=== PATIENT | female | born 1980 ===

== ENCOUNTER 2024-12-19 01:31 | Emergency (ER) | payer SELFPAY ==
[2024-12-19 01:37] VITALS: BP 122/72; PULSE 99; TEMP 38.1; O2SAT 98; BMI 36.6
[2024-12-19 01:50] LABS: Influenza Virus A Antigen Negative; Influenza Virus B Antigen Negative; Internal Control Within Normal Limits; SARS-CoV-2 Ag NEGATIVE (NEGATIVE)
[2024-12-19 01:55] VITALS: O2SAT 97
--- NOTE | 2024-12-19 02:16 | ED.GENADUL1 ---
HPI HPI - General Adult General Chief complaint: Shortness of Breath/Dyspnea Stated complaint: COUGH Time Seen by Provider: 12/19/24 01:32 Source: patient Mode of arrival: ambulance Limitations: no limitations History of Present Illness HPI narrative: 43-year-old female to the emergency department with chief complaint of flulike illness. Started over the last 48 hours. She reports fever, chills, malaise, cough, congestion. She is a smoker. She reports she is otherwise at her baseline health. Denies . Related Data Home Medications ?Medication ?Instructions ?Recorded ?Confirmed buspirone 7.5 mg tablet 7.5 mg PO BID 12/19/24 12/19/24 hydroxyzine HCl 25 mg tablet 50 mg PO Q8H PRN anxiety 12/19/24 12/19/24 magnesium oxide 400 mg (241.3 mg 400 mg PO DAILY 12/19/24 12/19/24 magnesium) tablet melatonin 5 mg tablet 5 mg PO DAILY 12/19/24 12/19/24 Previous Rx's ?Medication ?Instructions ?Recorded azithromycin 250 mg tablet 250 mg PO DAILY 4 days #4 tabs 12/19/24 pelqxcbztccdzqq-lxhjygpvpivaxni-VN 5 ml PO Q4H PRN cold symptoms #118 12/19/24 2 mg-30 mg-10 mg/5 mL oral syrup mL (Bromfed DM) methylprednisolone 4 mg tablets in 4 mg PO DAILY #21 ea 12/19/24 a dose pack (Medrol (Pako)) Allergies Allergy/AdvReac Type Severity Reaction Status Date / Time opioids AdvReac Unknown Unknown Uncoded 12/19/24 01:44 Opioid HPI Opioid Management Most Recent Opioid Data: No Data to Display Review of Systems ROS Status of ROS 10 or more systems reviewed and unremarkable except as noted in history and below PFSH PFSH Social History Little interest or pleasure in doing things: not at all Feeling down, depressed, or hopeless: not at all Exam Narrative Exam Narrative: VITALS: I have reviewed the triage vital signs. GENERAL: Well developed, well appearing adult in no acute distress. NEURO: Alert and oriented. Moves all extremities. Face is symmetric and expressive. EYES: PERRL. No scleral icterus or conjunctival injection. No discharge. HENT: Normocephalic, atraumatic. Hearing is grossly intact. Nasal ingestion with clear discharge. Mucous membranes moist. NECK: No JVD. Patient moves neck without restriction. CARDIO: Rhythm regular. Normal rate. No murmur, rub, or gallop. Pulses equal bilaterally in the upper and lower extremity. No lower extremity edema. PULM: Lungs clear to auscultation in all maciel. No wheezes, rales, or rhonchi. No conversational dyspnea. No splinting, stridor, or accessory muscle use. Dry cough on exam. GI/: Abdomen is soft and non-tender. Normoactive bowel sounds. EXTREMITIES: Symmetric muscle bulk. No joint swelling. No clubbing, cyanosis, or deformity. SKIN: Warm and dry. Normal turgor. No rash or lesions appreciated. PSYCH: Tearful Constitutional Vital Signs, click to edit/add: Last Vital Signs Temp 100.6 F H 12/19/24 01:37 Pulse 99 H 12/19/24 01:37 Resp 20 12/19/24 01:37 BP 122/72 12/19/24 01:37 Pulse Ox 97 12/19/24 01:55 O2 Del Method Room Air 12/19/24 01:55 Course Vital Signs Vital signs: Vital Signs Temperature 100.6 F H 12/19/24 01:37 Pulse Rate 99 H 12/19/24 01:37 Respiratory Rate 20 12/19/24 01:37 Blood Pressure 122/72 12/19/24 01:37 Pulse Oximetry 98 12/19/24 01:37 Oxygen Delivery Method Room Air 12/19/24 01:37 Temperature 100.6 F H 12/19/24 01:37 Pulse Rate 99 H 12/19/24 01:37 Respiratory Rate 20 12/19/24 01:37 Blood Pressure 122/72 12/19/24 01:37 Pulse Oximetry 97 12/19/24 01:55 Oxygen Delivery Method Room Air 12/19/24 01:55 Medical Decision Making MDM Narrative Medical decision making narrative: 43-year-old female to the emergency department with chief complaint of flulike illness. Vital stable, the patient does have a fever. Flu and COVID testing are negative. She is early in illness that this may be false as we are seeing a high amount of influenza A activity in the community and her symptoms seem consistent. We also seeing some atypical pneumonia. Will cover her with azithromycin. Symptomatic medications prescribed. Return precautions were discussed. All questions were answered. The patient was discharged home Medical Records Medical records reviewed: Yes I reviewed the patient's medical records Lab Data Lab results reviewed: Yes I reviewed the patient's lab results Labs: Lab Results 12/19/24 Range/Units 01:30 Influenza Type A Ag Negative Influenza Type B Ag Negative SARS-CoV-2 Ag (CV2AG) Negative (NEGATIVE) Discharge Plan Discharge Chief Complaint: Shortness of Breath/Dyspnea Clinical Impression: Cough Patient Disposition: Home, Self-Care Time of Disposition Decision: 02:01 Condition: Good Mode of Transportation: Private Vehicle Prescriptions / Home Meds: New methylprednisolone [Medrol (Pako)] 4 mg tablets,dose pack 4 mg PO DAILY Qty: 21 0RF Rx Instructions: TAKE PER DOSEPAK INSTRUCTIONS azithromycin 250 mg tablet 250 mg PO DAILY 4 Days Qty: 4 0RF Rx Instructions: start on day 2 of therapy xyioqwkdpbcicdc-bwvdbuwhk-CA [Bromfed DM] 2-30-10 mg/5 mL syrup 5 ml PO Q4H PRN (Reason: cold symptoms) Qty: 118 0RF No Action buspirone 7.5 mg tablet 7.5 mg PO BID hydroxyzine HCl 25 mg tablet 50 mg PO Q8H PRN (Reason: anxiety) magnesium oxide 400 mg (241.3 mg magnesium) tablet 400 mg PO DAILY Rx Instructions: HS melatonin 5 mg tablet 5 mg PO DAILY Rx Instructions: HS Print Language: Tamazight Instructions: Acute Cough (ED) Additional Instructions: Call the office of your primary care doctor to arrange for follow-up within the above-stated timeframe. Your ED visit was focused on your acute issue and does not replace primary care. You should review your labs, imaging, and diagnoses from this ED visit with your primary care physician. There may be non-emergent/ incidental findings that need further evaluation. You should review your vital signs including blood pressure with your PCP. If you were prescribed medications you should discuss possible side-effects and drug interactions with your pharmacist. Call 911 or go to the nearest Emergency Department if you develop any new or worsening symptoms. Seek immediate medical attention if you develop: worsening shortness of breath, difficulty breathing, chest pain, nausea, vomiting, weakness, numbness, tingling, excessive sweating, loss of motion in your arms or legs, or any new or worsening symptoms. Referrals: Physician,Non-Staff, MD [Primary Care Provider] - 1 week
[2024-12-19] MEDS: PSEUDOEPHEDRINE HCL 30 MG TABLET PO (02:39)
[2024-12-19] MEDS: BENZONATATE 100 MG CAPSULE 200 MG PO (02:39)
[2024-12-19] MEDS: AZITHROMYCIN 250 MG TABLET 500 MG PO (02:39)
[2024-12-19] MEDS: DEXAMETHASONE SOD PHOS 10 MG/ML VIAL IM (02:39)
[2024-12-19] MEDS: KETOROLAC TROMETHAMINE 30 MG/ML VIAL IM (02:39)
== END 2024-12-19 06:20 | disposition home or self-care (01) ==
PROVIDERS: Emergency Provider Student in an Organized Health Care Education/Training Program
DX: R05.9 Cough, unspecified (principal); R50.9 Fever, unspecified; R53.81 Other malaise; F17.200 Nicotine dependence, unspecified, uncomplicated
CPT/HCPCS: 87804; 87811; 96372; 99285; J1100; J1885